=== PATIENT | female | born 1995 | race Caucasian/White ===

== ENCOUNTER 2019-10-23 15:53 | Emergency (ER) | payer OTHER, SELFPAY ==
--- NOTE | ~2019-10-23 | CT_ITS ---
EXAMINATION: CT abdomen pelvis w con DATE: 10/23/2019 17:25 INDICATION: Right flank pain. TECHNIQUE: Computed tomography (CT) of the abdomen and pelvis was performed with 100 mL Omnipaque 350 intravenous contrast. Automated exposure control and iterative reconstruction technique were employe d. The dose-length product was 578.34 mGy-cm. COMPARISON: None. FINDINGS: The visualized portions of the lung bases demonstrate mild atelectasis. No pleural effusion . The heart size is normal. No pericardial effusion. The liver, gallbladder, spleen, pancreas, adrena l glands, and kidneys are normal. There are no dilated loops of bowel. The appendix is normal. There are no pathologically enlarged lymph nodes. There is no free intraperitoneal fluid. There are chronic bilateral L5 pars defects. There is 4 mm anterolisthesis of L5 on S1. There is mild thoracolumbar sp ondylosis. IMPRESSION: 1. No etiology for the patient's symptoms. Reviewed, dictated and finalized at location A.
[2019-10-23 15:55] VITALS: BP 132/69; PULSE 79; RESP 20; TEMP 36.4; O2SAT 99
[2019-10-23 16:21] LABS: Basophils Absolute Auto 0.1 K/mm3 (0.0-0.1); Basophils Percent Auto 1.4 % (0.2-1.2); Eosinophils Absolute Auto 0.3 K/mm3 (0-0.3); Eosinophils Percent Auto 2.8 % (0-4.4); Hematocrit 39.8 % (37.0-47.0); Hemoglobin 13.2 g/dL (12.0-15.0); Immature Granulocyte Absolute 0.02 K/mm3 (0.00-0.031); Immature Granulocyte Percent A 0.2 % (0-0.5); Lymphocytes Absolute Auto 2.78 K/mm3 (0.9-3.2); Lymphocytes Percent Auto 30.1 % (18.3-44.2); Mean Corpuscular HGB Conc 33.2 g/dl (32-36); Mean Corpuscular Hemoglobin 27.3 pg (26-34); Mean Corpuscular Volume 82.2 fl (80-100); Mean Platelet Volume 10.9 fl (7.4-10.4); Monocytes Absolute Auto 0.6 K/mm3 (0.1-0.6); Neutrophils Absolute Auto 5.5 K/mm3 (1.3-6.7); Neutrophils Percent Auto 59.5 % (45.5-73.1); Platelet Count Result 322 k/mm3 (150-375); Red Blood Count 4.84 M/mm3 (4.2-5.4); Red Cell Distribution Width 12.6 % (11.5-14.5); White Blood Count 9.2 K/mm3 (4.5-10.0)
[2019-10-23 16:28] LABS: Add Urine Microscopic? YES; Appearance Urine Clear (Clear); Bacteria Urine Trace /hpf; Bilirubin Urine Negative (Negative); Blood Urine Negative (Negative); Color Urine Yellow (Yellow); Glucose Urine UA Negative (Negative); Ketones Urine Negative (Negative); Leukocyte Esterase Ur Trace LEU/UL (Negative); Mucus Urine Rare /lpf; Nitrate Urine Negative (Negative); Protein Urine Negative (Negative); RBC Urine 0-2 /hpf (0-2); Specific Grav Ur 1.027 (1.001-1.035); Squamous Epithelial Cell Urine Few /hpf (Few)
[2019-10-23 16:38] LABS: Anion Gap 13.1 mmol/L (7-16); Blood Urea Nitrogen 14 mg/dL (7-17); Calcium 9.6 mg/dL (8.4-10.2); Carbon Dioxide 24 mmol/L (22-30); Chloride 106 mmol/L (98-107); Estimated CRCL calculation 98 ml/min; Estimated Glomerular Filt Rate > 60; Glucose 92 mg/dL (65-105); Potassium 4.1 mmol/L (3.4-5.0); Sodium 139 mmol/L (137-145)
--- NOTE | 2019-10-23 16:54 | ED.BACK ---
HPI - Back Pain/Injury General Chief Complaint: Back Pain/Injury Stated Complaint: right lower back pain Time Seen by Provider: 10/23/19 16:20 History of Present Illness HPI Narrative: Patient presents with right flank pain for about a week. Started mild and has been getting worse. It it does not hurt at all when she is at home resting. It hurts mostly when she is moving the carts at work. 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 She had no trauma or injury. She has had no fever,, or sweats. She has had some nausea, but no vomiting. No change in stool. No history of kidney stone, Crohn's, or ulcerative colitis. She does not smoke cigarettes, she does drink some alcohol, she does not do drugs. She has never had a surgery. She has not been sick in the last week or 2. She is on control pills. MD elicited complaint: back pain Onset (ago): day(s) Timing: intermittent Severity: moderate Similar Symptoms Previously: No Radiation: none Exacerbating factors: movement Relieving factors: immobilization Related Data Allergies Allergy/AdvReac Type Severity Reaction Status Date / Time No Known Allergies Allergy Verified 08/06/19 10:11 Review of Systems Review of Systems: Narrative: CONSTITUTIONAL: Denies fever, chills, or sweats. EYES: Denies visual changes, redness, or discharge. ENT: Denies rhinorrhea, congestion, sore throat, or otalgia. CARDIOVASCULAR: Denies chest pain, palpitations, or edema. RESPIRATORY: Denies cough or dyspnea. GASTROINTESTINAL: She has the right flank pain, nausea, but no vomiting, or diarrhea. GENITOURINARY: Denies dysuria or hematuria. SKIN: Denies rash or itching. MUSCULOSKELETAL: Denies back pain, joint pain, or myalgia. NEUROLOGIC: Denies headache, numbness, or weakness. PSYCHIATRIC: Denies anxiety or depression. All systems reviewed & are unremarkable except as noted in HPI and below PMFSH Surgical History Surgical History (Updated 10/23/19 @ 16:58 by Lurdes Yates MD) No pertinent past surgical history Social History Social History (Updated 10/23/19 @ 16:58 by Lurdes Yates MD) Smoking status: Never smoker Second hand tobacco smoke exposure: No Alcohol intake: current Substance use: never Exam Narrative: Exam Narrative: GENERAL: Well-appearing, well-nourished, and in no acute distress. HEAD: Normocephalic, atraumatic. EYES: PERRLA and EOMI. ENT: Nares clear, no rhinorrhea or epistaxis. Mucous membranes moist. NECK: Supple. CHEST: Clear to auscultation. No respiratory distress. HEART: Regular rate and rhythm. No murmur heard. Normal peripheral pulses. ABDOMEN: Soft, nontender, nondistended, normal active bowel sounds. EXTREMITIES: Normal range of motion. No edema. SKIN: Warm, dry, no rash. NEURO: No focal deficits. Alert and oriented x3. PSYCH: Normal mood and affect. Course Reevaluation(s) Reevaluation #1: Went in the room to tell the patient how good her CAT scan turned out. I told her I gave her muscle relaxers for her musculoskeletal pain. Date: 10/23/19 Time: 17:59 Vital Signs Vital signs: Vital Signs Temperature 97.5 F L 10/23/19 15:55 Pulse Rate 79 10/23/19 15:55 Respiratory Rate 20 10/23/19 15:55 Blood Pressure 132/69 10/23/19 15:55 Pulse Oximetry 99 10/23/19 15:55 Temperature 97.5 F L 10/23/19 15:55 Pulse Rate 79 10/23/19 15:55 Respiratory Rate 20 10/23/19 15:55 Blood Pressure 132/69 10/23/19 15:55 Pulse Oximetry 99 10/23/19 15:55 MDM - Back Pain/Injury Medical Records Attestation: I reviewed the patient's medical records. Lab Data Attestation: I reviewed the patient's lab results. Result diagrams: 10/23/19 16:13 10/23/19 16:13 Labs: Lab Results 10/23/19 10/23/19 10/23/19 Range/Units 16:08 16:13 16:13 WBC 9.2 (4.5-10.0) K/mm3 RBC 4.84 (4.2-5.4) M/mm3 Hgb 13.2 (12.0-15.0) g/dL Hct 39.8 (37.0-47.0) % MCV 82.2 (80-100) fl MCH 27.3 (26-34) pg MCHC 33
[2019-10-23 18:21] VITALS: BP 130/64; PULSE 70; RESP 12; O2SAT 99
== END 2019-10-23 18:22 | disposition home or self-care (01) ==
PROVIDERS: Emergency Medicine; Emergency Provider Emergency Medicine; PCP Internal Medicine
DX: R10.9 Unspecified abdominal pain (principal)
CPT/HCPCS: 36415; 74177; 80048; 81001; 81025; 85025; 99284; Q9967

== ENCOUNTER 2022-02-24 17:26 | Emergency (ER) | payer OTHER, SELFPAY ==
--- NOTE | 2022-02-24 17:29 | ED.SKABFB ---
HPI - Skin/Abscess/Foreign Bdy General Chief complaint: Skin/Abscess/Foreign Body Stated complaint: rash Time Seen by Provider: 02/24/22 17:28 Source: patient Mode of arrival: ambulatory Limitations: no limitations History of Present Illness HPI narrative: Vandana is a 26-year-old female patient presenting to the clinic today with complaints of a rash to her inner thighs x 3 weeks. She reports the rash is burning and can be itchy at times. States that it seems to be spreading. She has tried covering them and try different lotions to help resolve the without success Related Data Allergies Allergy/AdvReac Type Severity Reaction Status Date / Time No Known Allergies Allergy Verified 01/28/22 11:23 Review of Systems Review of Systems: Pertinent positives per HPI. Patient denies any fever, chills, headache, visual changes, dizziness, cough, runny nose, sore throat, shortness of breath, chest pain, palpitations, nausea, vomiting, diarrhea, constipation, abdominal pain, or any urinary issues. PMFSH Past Medical History Medical History Anxiety Fracture of right upper limb Surgical History Surgical History No pertinent past surgical history Family History Family History Mother Hypertension Patient's mother is in good health Father Patient's father is in good health Family history of elevated blood lipids Grandparent Family history of primary malignant neoplasm of liver, Onset Age: 69 Social History Social History Smoking status: Never smoker Second hand tobacco smoke exposure: No Alcohol intake: current Alcohol use details: 2-4 drinks once a month Substance use: never Comments At the time of my signature, I reviewed and agree with the nursing past medical, surgical, social, and family history. There is no relevant family history pertinent to the patient complaint. Exam Narrative: General: Well-developed, well nourished, in no apparent distress Head: Normocephalic, atraumatic. Cardio: Regular rate and rhythm, s1 and s2 normal, no murmur appreciated. Resp: Clear to auscultation bilaterally, no rhonchi, rales, wheezing or rubs. Integumentary: [place], warm, and dry, intact without lesion, red mildly raises beefy looking rash to the inner/ posterior thighs bilaterally with satellite lesions Course Course Emergency Course: Portions of this record may have been created with voice recognition software. Level of Care: Express Care Visit Vital Signs Vital signs: Vital Signs Temperature 36.3 C L 02/24/22 17:35 Pulse Rate 77 02/24/22 17:35 Respiratory Rate 18 02/24/22 17:35 Blood Pressure 119/70 02/24/22 17:35 Pulse Oximetry 100 02/24/22 17:35 Oxygen Delivery Room Air 02/24/22 17:35 Temperature 36.3 C L 02/24/22 17:35 Pulse Rate 77 02/24/22 17:35 Respiratory Rate 18 02/24/22 17:35 Blood Pressure 119/70 02/24/22 17:35 Pulse Oximetry 100 02/24/22 17:35 Oxygen Delivery Room Air 02/24/22 17:35 Vital signs reviewed MDM - Skin/Abscess/Foreign Bdy MDM Narrative Medical decision making narrative: At the time of visit patient is resting comfortably on the exam table. I suspect the patient has fungal skin infection. prescription for nystatin cream was ordered and sent to the pharmacy. Supportive measures were discussed with the patient she voiced understanding of discharge instructions and agrees to the treatment plan Differential Diagnosis Differential diagnosis: Likely cellulitis, eczema, contact dermatitis and other ( yeast infection) Discharge Plan Discharge Clinical Impression: Candidal skin infection Patient Disposition: Home, Self-Care Condition: Stable Instructions: Antibiotic Form
[2022-02-24 17:35] VITALS: BP 119/70; PULSE 77; RESP 18; TEMP 36.3; O2SAT 100
== END 2022-02-24 17:57 | disposition home or self-care (01) ==
PROVIDERS: Emergency Provider Nurse Practitioner Family; PCP Internal Medicine
DX: B37.2 Candidiasis of skin and nail (principal)
CPT/HCPCS: 99213; G0463

== ENCOUNTER 2022-09-05 19:02 | Emergency (ER) | payer OTHER, SELFPAY ==
--- NOTE | ~2022-09-05 | XR_ITS ---
XR knee LT min 4V DATE: 09/05/2022 19:26 INDICATION: Fall one the left knee 1 week ago. Pain. TECHNIQUE: 4 views COMPARISON: None FINDINGS: No fracture or dislocation or joint effusion. Joint spaces are well preserved. No radiopaqu e intra-articular loose body or, calcinosis. No periosteal reaction or bone destruction. IMPRESSION: Negative Reviewed, dictated and finalized at location A. IMPRESSION: Negative
--- NOTE | 2022-09-05 19:15 | ED.LOWEXIN ---
HPI - Extremity Injury (Lower) General Chief Complaint: Extremity Injury, Lower Stated Complaint: lt knee injury Time Seen by Provider: 09/05/22 19:15 Source: patient Mode of arrival: ambulatory Limitations: no limitations History of Present Illness HPI Narrative: 27-year-old female presents with complaint of pain to left knee. States 1 week ago she fell while walking on the sidewalk. States that left knee twisted and then she fell on it. Small abrasion noted. Patient works in [employer] and states she stands most today. Since injury left knee pain is getting progressively worse. Ambulatory without limp. All systems reviewed and negative except as noted above. Related Data Home Medications Medication Instructions Recorded Confirmed No Home Medications 09/05/22 09/05/22 Allergies Allergy/AdvReac Type Severity Reaction Status Date / Time No Known Allergies Allergy Verified 03/23/22 15:08 Review of Systems Review of Systems: CONSTITUTIONAL: Denies fever, chills, or sweats. EYES: Denies visual changes, redness, or discharge. ENT: Denies rhinorrhea, congestion, sore throat, or otalgia. CARDIOVASCULAR: Denies chest pain, palpitations, or edema. RESPIRATORY: Denies cough or dyspnea. GASTROINTESTINAL: Denies abdominal pain, nausea, vomiting, or diarrhea. GENITOURINARY: Denies dysuria or hematuria. SKIN: Denies rash or itching. MUSCULOSKELETAL: Reports left knee pain. NEUROLOGIC: Denies headache, numbness, or weakness. PSYCHIATRIC: Denies anxiety or depression. All other systems reviewed are negative, except as documented in HPI. [facility] Past Medical History Medical History Anxiety Fracture of right upper limb Hyperlipidemia Surgical History Surgical History No pertinent past surgical history Family History Family History Mother Hypertension Patient's mother is in good health Father Patient's father is in good health Family history of elevated blood lipids Grandparent Family history of primary malignant neoplasm of liver, Onset Age: 69 Social History Social History Smoking status: Never smoker Second hand tobacco smoke exposure: No Alcohol intake: current Alcohol use details: 2-4 drinks once a month Substance use: never Lack of Transportation: No Lack of Food: Never True Current Housing: I Have Housing Concerned About Future Housing: No Difficulty Paying Gas/Electric Bills: No Difficulty Paying for Meds: No Currently Unemployed: No Education: Associate Degree Difficulty w/ Childcare or Family Care: No Comments At time of signature, agree with nursing past medical, surgical, social and family history. There is no relevant family history pertinent to the presenting complaint. Exam Narrative: GENERAL: This is a well-nourished, well-developed patient, in no apparent distress. HEAD: normocephalic, atraumatic. EYES: PERRL. Sclera clear/white. Vision is grossly intact. EARS: External ears normal NOSE: External nose normal NECK: Neck supple, non-tender without lymphadenopathy, masses or thyromegaly. CARDIOVASCULAR: Regular rate and rhythm without murmurs, gallops, or rubs. RESPIRATORY: Clear to auscultation. Breath sounds equal bilaterally. No wheezes, rales, or rhonchi. SKIN: warm, Dry, intact with no suspicious lesions or rash, good texture and turgor. NEURO: awake, alert, and oriented to person, place and time. There were no obvious focal neurologic abnormalities. EXTREMITIES: Tenderness on palpation to lateral aspect of left knee. Abrasion noted anteriorly. No instability noted, negative anterior posterior drawer testing. No significant swelling noted. Course Course Level of Care: [facility] Care Visit V
[2022-09-05 19:23] VITALS: BP 132/88; PULSE 74; RESP 16; TEMP 36.2; O2SAT 100
== END 2022-09-05 19:50 | disposition home or self-care (01) ==
PROVIDERS: Emergency Provider Nurse Practitioner Family; PCP Internal Medicine
DX: S83.92XA Sprain of unspecified site of left knee, initial encounter (principal); S80.212A Abrasion, left knee, initial encounter; W19.XXXA Unspecified fall, initial encounter; E78.5 Hyperlipidemia, unspecified
CPT/HCPCS: 73564; 99213; G0463

== ENCOUNTER 2023-02-21 13:48 | Emergency (ER) | payer BC, SELFPAY ==
--- NOTE | ~2023-02-21 | XR_ITS ---
EXAMINATION: XR chest 2V DATE: 02/21/2023 14:40 INDICATION: Left chest pain. TECHNIQUE: Frontal and lateral views of the chest were obtained. COMPARISON: CT abdomen and pelvis 10/23/19 FINDINGS: There is no pneumonia, pleural effusion, or pneumothorax. The heart size is normal. IMPRESSION: 1. No acute cardiopulmonary disease. Reviewed, dictated and finalized at location A. ET STRINGER
[2023-02-21 13:49] VITALS: BP 129/87; PULSE 81; RESP 20; TEMP 36.3; O2SAT 98
--- NOTE | 2023-02-21 13:49 | ECG_ITS ---
Measurements Intervals [place] Rate: 66 P: 48 [place]: 134 QRS: 49 QRSD: 81 T: 32 QT: 404 QTc: 425 Interpretive Statements SINUS RHYTHM BASELINE ARTIFACT- I, II, III, AVR, AVL, AVF, V4-V6 NORMAL ECG NO PREVIOUS ECG AVAILABLE FOR COMPARISON Electronically Signed On 02-21-2023 14:15:00 [employer] by Thanh Johnston D.O.
[2023-02-21 14:03] VITALS: BP 124/82; PULSE 71; RESP 18; TEMP 36.9; O2SAT 98
[2023-02-21 14:35] LABS: Basophils Absolute Auto 0.1 K/mm3 (0.0-0.1); Basophils Percent Auto 1.1 % (0.2-1.2); Eosinophils Absolute Auto 0.1 K/mm3 (0-0.3); Hemoglobin 12.9 g/dL (12.0-15.0); Immature Granulocyte Absolute 0.05 K/mm3 (0.00-0.031); Immature Granulocyte Percent A 0.5 % (0-0.5); Lymphocytes Absolute Auto 2.72 K/mm3 (0.9-3.2); Lymphocytes Percent Auto 27.2 % (18.3-44.2); Mean Corpuscular HGB Conc 32.3 g/dl (32-36); Mean Corpuscular Hemoglobin 26.8 pg (26-34); Mean Platelet Volume 10.4 fl (7.4-10.4); Monocytes Absolute Auto 0.6 K/mm3 (0.1-0.6); Monocytes Percent Auto 5.6 % (2.6-8.5); Neutrophils Absolute Auto 6.5 K/mm3 (1.3-6.7); Neutrophils Percent Auto 64.6 % (45.5-73.1); Platelet Count Result 317 k/mm3 (150-375); Red Blood Count 4.82 M/mm3 (4.2-5.4); Red Cell Distribution Width 12.7 % (11.5-14.5)
[2023-02-21 14:43] LABS: Alanine Aminotransferase 17 U/L (6-35); Albumin Level 4.5 g/dL (3.5-5.1); Alkaline Phosphatase 91 U/L (38-126); Anion Gap 10 mmol/L (8-16); Aspartate Amino Transferase 24 U/L (14-36); Bilirubin,Total 0.7 mg/dL (0.2-1.3); Blood Urea Nitrogen 11 mg/dL (7-17); Calcium 9.3 mg/dL (8.4-10.2); Carbon Dioxide 27 mmol/L (22-30); Chloride 100 mmol/L (98-107); Estimated CRCL calculation 111 ml/min; Estimated Glomerular Filt Rate > 60; Glucose 86 mg/dL (65-110); Lipase 33 U/L (23-300); Potassium 3.6 mmol/L (3.4-5.0); Sodium 137 mmol/L (137-145)
[2023-02-21 14:52] LABS: Partial Thromboplastin Time 31.1 SECONDS (22.3-36.8)
[2023-02-21 14:53] LABS: Prothrombin Time 13.4 Seconds (11.1-14.7)
[2023-02-21 14:54] LABS: Troponin I < 0.012 ng/mL (0.000-0.034)
--- NOTE | 2023-02-21 16:46 | ECG_ITS ---
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
--- NOTE | 2023-02-21 16:48 | ED.GENADULT ---
[facility] - General Adult General Chief complaint: Chest Pain Stated complaint: CP x 3 weeks Time Seen by Provider: 02/21/23 16:48 Source: patient Mode of arrival: ambulatory Limitations: no limitations History of Present Illness HPI narrative: This is a 27-year-old female who presents to the ED with chief complaint of chest pain ongoing for the past several weeks intermittently. Reports it returned yesterday and is worse today. Reports pain to the ?top part of the chest. Denies any radiation of pain. Denies syncope or vomiting. Denies shortness of breath, cough or recent illness. Reports sometimes the pain is more on the left and sometimes more on the right. States that since she had been triaged the pain is decreasing. Denies any hormone use, blood clot history or recent travel. Denies any further complaints. Does note that she has had history of GERD in the past but is unsure this is related. She also states that this pain has been precipitated by social alcohol use in the past as well, but she did have a recent night of drinking with friends. Related Data Allergies Allergy/AdvReac Type Severity Reaction Status Date / Time No Known Allergies Allergy Verified 03/23/22 15:08 Review of Systems Review of Systems: All systems as dictated in [facility] Past Medical History Medical History Anxiety Fracture of right upper limb Hyperlipidemia Surgical History Surgical History No pertinent past surgical history Family History Family History Mother Hypertension Patient's mother is in good health Father Patient's father is in good health Family history of elevated blood lipids Grandparent Family history of primary malignant neoplasm of liver, Onset Age: 69 Social History Social History Smoking status: Never smoker Second hand tobacco smoke exposure: No Alcohol intake: current Alcohol use details: 2-4 drinks once a month Substance use: never Lack of Transportation: No Lack of Food: Never True Current Housing: I Have Housing Concerned About Future Housing: No Difficulty Paying Gas/Electric Bills: No Difficulty Paying for Meds: No Currently Unemployed: No Education: Associate Degree Difficulty w/ Childcare or Family Care: No Exam Narrative: GENERAL: Well-appearing, well-nourished, and in no acute distress. HEAD: Normocephalic, atraumatic. EYES: PERRLA and EOMI. ENT: Nares clear, no rhinorrhea or epistaxis. Mucous membranes moist. Oropharynx without tonsillar hypertrophy exudate or other lesions. NECK: Supple. No adenopathy or masses. CHEST: No respiratory distress. Clear to auscultation. No wheezes rales or rhonchi HEART: Regular rate and rhythm. No murmur heard. Normal peripheral pulses. ABDOMEN: Soft, nontender, nondistended, normal active bowel sounds. MSK: Normal range of motion. No edema. SKIN: Warm, dry, no rash. NEURO: Alert and oriented x3. No focal deficits. PSYCH: Normal mood and affect. Course Vital Signs Vital signs: Vital Signs Temperature 97.3 F L 02/21/23 13:49 Pulse Rate 81 02/21/23 13:49 Respiratory Rate 20 02/21/23 13:49 Blood Pressure 129/87 02/21/23 13:49 Pulse Oximetry 98 02/21/23 13:49 Oxygen Delivery Room Air 02/21/23 13:49 Temperature 98.5 F 02/21/23 14:03 Pulse Rate 63 02/21/23 16:49 Respiratory Rate 18 02/21/23 16:49 Blood Pressure 116/80 02/21/23 16:49 Pulse Oximetry 100 02/21/23 16:49 Oxygen Delivery Room Air 02/21/23 13:49 Medical Decision Making [facility] Narrative Medical decision making narrative: This is a 27-year-old female who presents to the ED with chief complaint of multiple weeks of chest pain. Vitals are normal. EKG shows normal sinus rhythm
[2023-02-21 16:49] VITALS: BP 116/80; PULSE 63; RESP 18; O2SAT 100
[2023-02-21 17:37] LABS: Troponin I < 0.012 ng/mL (0.000-0.034)
== END 2023-02-21 18:02 | disposition home or self-care (01) ==
LOC: ANHED 17:47
PROVIDERS: Emergency Medicine; Emergency Provider Physician Assistant; PCP Internal Medicine
DX: R07.89 Other chest pain (principal); E78.5 Hyperlipidemia, unspecified; K21.9 Gastro-esophageal reflux disease without esophagitis
CPT/HCPCS: 36415; 71046; 80053; 83690; 84484; 85025; 85610; 85730; 93005; 99284

== ENCOUNTER 2024-06-22 10:00 | Outpatient (RCR) | payer OTHER, SELFPAY ==
--- NOTE | 2024-04-24 12:06 | PTOPEVAL1 ---
Assessment and note entered by Elda Braden, PT Evaluation Information Assessment Status Evaluation Diagnosis M54.50, M79.604 ICD-10 Condition Codes (PT) Pain in right hip M25.551,Pain in right ankle and joints of right foot M25.571,Weakness R53.1 Onset May 2023 Subjective Information Pt c/o pain which sometimes starts from the R calf, at times it is the whole leg and butt region . described as burning, squeezing, radiating. 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 Sometimes it would be short bursts on and off. Pain comes and goes at time; States took steroids and pain pills but did not resolve the problem. often change position at work. Reported Pain Level Pain Score 0: Self Report Additional Pain Score Comments sits down or laying down to relieve when it is worse. Assessment PT Clinical Summary Pt presents to therapy for evaluation due to leg pain. Demos limitations to lumbar and BLE ROM and strength, postural deficits, decreased core strength and back stability, and pain levels that would disrupt functional mobility when at worst. She would benefit from skilled PT interventions to improve flexibility, lumbar stabilization and core strengthening, modalities prn to manage pain and soft tissue shortening, education including but not limited to HEPs to improve mobility and increase activity tolerance. Plan of Care Interventions Electrical Stimulation,Gait Training,Hot Pack/Cold Pack,Manual Therapy,Mechanical Traction,Neuro Re- education,Patient/Caregiver Education,Therapeutic Activities,Therapeutic Exercise,Ultrasound,Other Other Interventions IASTM, Taping PT Services Indicated Yes Treatment Frequency and 1-2x/wk x 10 visits Duration These treatments will address the objective and functional deficits as defined above. The patient will be advanced safely and appropriately in order for the patient to progress towards his/her prior level of function. Additional exercises will be introduced and as well as a comprehensive home exercise program upon discharge, if needed, ?to ensure carryover of functional gains achieved in the clinic. This treatment plan has been reviewed and agreement upon by the patient.
--- NOTE | 2024-04-24 12:06 | OPREHPOC ---
Outpatient Therapy Plan of Care This is a Multidisciplinary Plan of Care that may contain components documented by all disciplines (PT, OT, and ST.) PT Problem 1 PT Problem #1 Knowledge Deficit PT Goal 1 Goal / Goal Update Pt will demo good understanding of diagnosis and prognosis and POC Pt will perform HEPs to improve core strength and lumbar stability, BLE flexibility and strengthening indep with good accuracy Target Visit 8 PT Problem 2 PT Problem #2 Pain PT Goal 1 Goal / Goal Update Pt will report 2-3/10 pain level at worst or during standing/walking. Pt will report complete resolution of pain to improve functional mobility without discomfort. Target Visit 10 PT Problem 3 PT Problem #3 Impaired Range of Motion PT Goal 1 Goal / Goal Update Pt will demo full active ROM to all tested planes
--- NOTE | 2024-07-23 15:19 | PTOPDC ---
Assessment and note entered by Elda Braden, PT Discharge Information Assessment Status Discharge - Pt Not Present Diagnosis M54.50, M79.604 ICD-10 Condition Codes (PT) Pain in right hip M25.551,Pain in right ankle and joints of right foot M25.571,Weakness R53.1 Onset May 2023 Assessment PT Clinical Summary Pt called office that she went ahead and pursued MRI with Doctor's recommendation for surgery. She cancelled remaining treatment appointments at this time. Plan of Care PT Services Indicated No
== END 2024-07-23 23:59 | disposition home or self-care (01) ==
LOC: ANHHIPT 10:00
PROVIDERS: PCP Nurse Practitioner; Visit Provider Nurse Practitioner
DX: M54.50 Low back pain, unspecified (principal); M79.604 Pain in right leg
CPT/HCPCS: 97012; 97014; 97035; 97110; 97112; 97140; 97161; 97530; G0283

== ENCOUNTER 2024-07-19 06:35 | Outpatient (CLI) | payer OTHER, SELFPAY ==
--- NOTE | ~2024-07-19 | MR_ITS ---
MRI of the lumbar spine Clinical History: Radiculopathy Technique: Axial T2-weighted images, and sagittal T1-weighted, T2-weighted, and and T2 fat-sat images were acquired. Findings: Bilateral L4 pars interarticularis defects are present, with 6 mm anterolisthesis of L4 ove r L5. No acute fracture identified. No bone marrow signal abnormality seen. At L1-L2, L2-L3, L3-L4, there is no disc bulge or herniation. No spinal canal stenosis or neural fora farooq narrowing at these levels. There is moderate facet hypertrophy at L3-L4. There is mild facet ar thropathy at L1-L2 and L2-L3. At L4-L5, there is severe degenerative disc narrowing. Disc bulge/uncovering is present with severe f acet arthropathy, resulting in severe spinal canal stenosis/thecal sac compression, in conjunction wi th the anterolisthesis. There is severe bilateral neural foraminal compromise at this level. At L5-S1, there is no disc bulge or herniation. No spinal canal stenosis or neural foraminal narrowin g. Impression: Bilateral L4 pars interarticularis defects, with 6 mm anterolisthesis of L4 over L5. Severe degenerative spondylitic changes at L4-L5, as detailed above. Reviewed, dictated and finalized at [facility]. Impression: Bilateral L4 pars interarticularis defects, with 6 mm anterolisthesis of L4 ove r L5. Severe degenerative spondylitic changes at L4-L5, as detailed above.
--- OUTSIDE RECORDS SUMMARY | 2024-07-19 06:39 | XMS_ITS | Clinical Summary ---
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 Name Role Phone Unavailable Primary Care Provider Unavailabl e Social History Tobacco Use Types Packs/Day Years Used Date Smoking Tobacco: Never Assessed Comments Unknown Sex and Gender Information Value Date Recorded Sex Assigned at Not on file Legal Sex Female 7:43 PM CDT Gender Identity Not on file Sexual Orientation Not on file Plan of Treatment Health Maintenance Due Date Last Done Comments Cervical Cancer Screening Pa p Smear (Age 30 to 64) Every 3 Years 1993 Annual Physical 1996 Hepatitis C 2011 DTaP, Tdap and Td Vaccines ( 1 - Tdap) 2012 Hepatitis B Vaccines (1 of 3 - 19+ 3-dose series) 2012 Cervical Cancer Screening Pa p with HPV Testing (Age 30 to 64) Every 5 Years 2023 Cervical Cancer Screening with HPV 2023 COVID-19 Vaccine (2023-2 5 season) 2023 HPV Vaccines Aged Out No longer eligi ble based on patient's age to complete this topic Meningococcal B Vaccine Aged Out No l onger eligible based on patient's age to complete this topic Meningococcal Vaccine Aged Out No martina antonino eligible based on patient's age to complete this topic Pneumococcal Vaccine: Pediat rics (0 to 5 Years) and At-Risk Patients (6 to 49 Years) Aged Out No longer eligible b ased on patient's age to complete this topic RSV Immunizations Under 20 Months Aged Out No longer eligible based on patient's age to complete this topic
== END 2024-07-19 06:36 | disposition home or self-care (01) ==
PROVIDERS: PCP Internal Medicine; Visit Provider Internal Medicine
DX: M47.26 Other spondylosis with radiculopathy, lumbar region (principal)
CPT/HCPCS: 72148

== ENCOUNTER 2024-08-03 07:51 | Outpatient (CLI) | payer OTHER, SELFPAY ==
--- NOTE | ~2024-08-03 | CT_ITS ---
CT lumbar spine wo con Ordering provider: Wyatt Orellana MD History: 29 years Female with . M43.16 - Spondylolisthesis, lumbar region . Comparison: None. Technique: CT lumbar spine without contrast. Automated exposure control and iterative reconstruction technique were employed. The dose-length product was 690.75 mGy-cm. FINDINGS: VERTEBRAE: Sacralization of L5 is noted. First-degree spondylolisthesis with bilateral spondylolysis seen at the level of L4-L5.. Otherwise, Normal height and alignment. No subluxation or visible acute fracture. DISC SPACES: Slight narrowing of the disc L4-L5. Otherwise, Well maintained. T12-L1: No stenosis. L1-L2: No stenosis. L2-L3: No stenosis. Mild diffuse disc bulge. L3-L4: No stenosis. Mild diffuse disc bulge. L4-L5: No stenosis. Diffuse disc bulge with bilateral narrowing of the foramina. Highly suggestive n o root compression is seen. L5-S1: No stenosis. PARASPINOUS SOFT TISSUES: Soft tissue density with calcification is seen to the left of the uterus wh ich measures 3.6 x 4 cm. This may represent an enlarged left ovary with a mass or uterine fibroid. Fu rther evaluation advised. IMPRESSION: Sacralization of L5. Spondylolisthesis at the level of L4-L5 with bilateral spondylolysis. Enlarged left ovary with possibility of a calcified mass versus fibroid. Further evaluation advised Reviewed, dictated and finalized at location A. IMPRESSION: Sacralization of L5. Spondylolisthesis at the level of L4-L5 with bilateral spondylolysis. Enlarged left ovary with possibility of a calcified mass versus fibroid. Furthe r evaluation advised
--- NOTE | ~2024-08-03 | XR_ITS ---
EXAMINATION: SCOLIOSIS DATE: 08/05/2024 10:43 CDT INDICATION: Spondylolisthesis TECHNIQUE: Standing AP and lateral views of the thoracolumbar spine FINDINGS: There are 12 rib bearing thoracic vertebral bodies and 5 non-rib bearing lumbar type verteb ral bodies. There is no listhesis, compression deformity or vertebral body anomalies. There is grade 2 spondylolisthesis at L5-S1 secondary to bilateral spondylolysis. There is mild smooth levocurvatur e of the thoracolumbar spine centered at T12 measuring approximately 3 degrees.. There is mild dextr ocurvature of the lumbar spine centered at L2-L3 of 5-6 degrees. IMPRESSION: 1. Mild levocurvature of the thoracolumbar spine. 2. Grade 2 spondylolisthesis at L5-S1 secondary to bilateral spondylolysis. Reviewed, dictated and finalized at location A.
--- NOTE | ~2024-08-03 | XR_ITS ---
Lumbosacral Spine: AP and lateral views Clinical History: Pain Findings: The normal lordotic curve is maintained. There are bilateral L5 pars interarticularis defec ts, with 15 mm anterolisthesis of L5 over S1. The intervertebral disc spaces are preserved. The sacr oiliac joints are normally outlined. Impression: Bilateral L5 pars interarticularis defects, with 15 mm anterolisthesis at this level. Reviewed, dictated and finalized at location M. Impression: Bilateral L5 pars interarticularis defects, with 15 mm anterolisthesis at this level.
--- OUTSIDE RECORDS SUMMARY | 2024-08-03 07:56 | XMS_ITS | Clinical Summary ---
Author Organization [facility] Address [address] [place] [id number] Care Team Providers Care Database Administration Manager Name Role Phone Unavailable Primary Care [...]
== END 2024-08-03 07:52 | disposition home or self-care (01) ==
PROVIDERS: PCP Internal Medicine; Visit Provider Neurological Surgery
DX: M51.86 Other intervertebral disc disorders, lumbar region (principal); M43.16 Spondylolisthesis, lumbar region; M43.8X5 Other specified deforming dorsopathies, thoracolumbar region; M43.17 Spondylolisthesis, lumbosacral region; N83.8 Other noninflammatory disorders of ovary, fallopian tube and broad ligament
CPT/HCPCS: 72082; 72110; 72131

== ENCOUNTER 2024-11-01 08:00 | Outpatient (RCR) | payer OTHER, SELFPAY ==
--- NOTE | 2024-08-06 12:22 | PTOPEVAL1 ---
Assessment and note entered by Elda Braden, PT Evaluation Information Assessment Status Evaluation Diagnosis M43.16, M54.16 ICD-10 Condition Codes (PT) Pain in low back M54.50,Radiculopathy, thoracolumbar region M54.15,Radiculopathy, lumbar region M54.16,Radiculopathy, sacral and sacrococcygeal region M54.18 Onset recurring Subjective Information Pt reports continued pain and discomfort to R lower leg and now, back is starting to bother her more. States she has had back problems on and off in the past. Pain is worse over the course of the day after prolonged standing position. Relieved with sitting/laying down. She did a lot of imaging procedures and consulted with Neurosurgeon, Reported Pain Level Pain Score 3: Self Report Assessment PT Clinical Summary Pt presents to therapy with c/o LBP and R leg pain which impact her ability to perform functional mobility without discomfort. 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 Pt also presents with MRI, X-ray and CT scan results indicating bilateral spondylolysis, Mild levocurvature of the thoracolumbar spine; Modified Oswestry showed mild to moderate disability. She will benefit from skilled PT program for education on postural awareness, proper body mechanics, exercises to improve mobility, flexibility and strength to improve activity tolerance, manage pain and reduce further damage to the spine. Plan of Care Interventions Check Out for Orthotic/Prosthetic,Electrical Stimulation,Gait Training,Hot Pack/Cold Pack, Manual Therapy,Neuro Re-education,Patient/ Caregiver Education,Therapeutic Activities, Therapeutic Exercise,Ultrasound,Other Other Interventions IASTM, Taping PT Services Indicated Yes Treatment Frequency and 2x/wk x 12 visits Duration These treatments will address the objective and functional deficits as defined above. The patient will be advanced safely and appropriately in order for the patient to progress towards his/her prior level of function. Additional exercises will be introduced and as well as a comprehensive home exercise program upon discharge, if needed, ?to ensure carryover of functional gains achieved in the clinic. This treatment plan has been reviewed and agreement upon by the patient.
--- NOTE | 2024-09-19 16:48 | PTOPPROG ---
Assessment and note entered by Kaitlyn Penny, PT Evaluation Information Assessment Status Progress Diagnosis M43.16, M54.16 ICD-10 Condition Codes (PT) Pain in low back M54.50,Radiculopathy, thoracolumbar region M54.15,Radiculopathy, lumbar region M54.16,Radiculopathy, sacral and sacrococcygeal region M54.18 Onset recurring Subjective Information Reports yesterday was able to walk her dog but as soon as got to work all day was flared up. Wasn't a 10 but all day the spasms and throbbing got to me. Reports yesterday was leaning over looking at chicken breasts and felt her back pull. States this morning walking as still flared up and laying down with the legs handing off could feel her back doing something. Has had some days pain has been very minimal and some days very bad. Second visit [facility] neurosurgeon wasn't much information and basically was do you want surgery now or not. Pain management has not done the shot in the back yet. Hayde called to move up but hasn't got it r/s yet . Gabapentin 300 mg 3x daily with pain management. Has been about the same this round of therapy. Hasn't seen much change, is always waiting for when is it going to hit. Assessment PT Clinical Summary Pt has attended therapy consistently for back and leg pain. She has progressed in that she has had instances of little to no pain though does not sustain more than a day. She shows improved strength, her lumbar ROM remains WFL though right lateral flexion continues to reproduce RLE symptoms. Pt cont to have difficulty isolating transverse abdominal musculature and performing/ maintaining pelvic tilt to decompress her spine with functional activities. Pt will benefit from continued therapy to address deficits, reduce pain , and improve function Plan of Care Interventions Check Out for Orthotic/Prosthetic,Electrical Stimulation,Gait Training,Hot Pack/Cold Pack, Manual Therapy,Mechanical Traction,Neuro Re- education,Patient/Caregiver Education,Therapeutic Activities,Therapeutic Exercise,Self-Care/Home Management,Ultrasound,Other Other Interventions IASTM, Taping PT Services Indicated Yes Treatment Frequency and 1-2x weekly x 10 visits Duration These treatments will address the objective and functional deficits as defined above. The patient will be advanced safely and appropriately in order for the patient to progress towards his/her prior level of function. Additional exercises will be introduced and as well as a comprehensive home exercise program upon discharge, if needed, ?to ensure carryover of functional gains achieved in the clinic. This treatment plan has been reviewed and agreement upon by the patient.
--- NOTE | 2024-09-19 16:48 | OPREHPOC ---
Outpatient Therapy Plan of Care This is a Multidisciplinary Plan of Care that may contain components documented by all disciplines (PT, OT, and ST.) PT Goal 1 Goal / Goal Update Pt will be independent in HEP Pt will verbalize understanding of diagnosis and prognosis Target Visit 10 PT Problem 2 PT Problem #2 Pain PT Goal 1 Goal / Goal Update Pt will report lowest pain rating at 0/10 to show improvement in overall discomfort Target Visit 10 Progress Met PT Goal 2 Goal / Goal Update Pt will report greatest pain level at 3/10 or less to improve ADLs and activities Target Visit 20 PT Problem 3 PT Problem #3 Impaired Strength PT Goal 1 Goal / Goal Update Pt will demonstrate 4/5 strength in TRAM in order to improve lumbar stability and control with functional activities. Pt will demonstrate 4/5 strength in gluteus medius and torey to improve lumbar stability and reduce lumbar strain Target Visit 20
== END 2024-11-04 23:59 | disposition home or self-care (01) ==
LOC: ANHHIPT 08:00
PROVIDERS: PCP Internal Medicine; Visit Provider Neurological Surgery
DX: M43.16 Spondylolisthesis, lumbar region (principal); M54.16 Radiculopathy, lumbar region
CPT/HCPCS: 97012; 97014; 97035; 97110; 97112; 97140; 97161; 97530; 97750; G0283

== ENCOUNTER 2024-12-10 08:45 | Outpatient (RCR) | payer OTHER, SELFPAY ==
--- NOTE | 2024-11-14 10:40 | PTOPPROG ---
Assessment and note entered by Kaitlyn Penny, PT Evaluation Information Assessment Status Progress Diagnosis M43.16, M54.16 ICD-10 Condition Codes (PT) Pain in low back M54.50,Radiculopathy, thoracolumbar region M54.15,Radiculopathy, lumbar region M54.16,Radiculopathy, sacral and sacrococcygeal region M54.18 Onset recurring Subjective Information Pt reports noted she hasn't been having as many flare ups. Used to get flare ups daily. Flare ups are less intense as well. Even at work with standing and with the brace alleviates the leg pain. Taking the brace off the leg pain returns, and with brace on leg pain really improves. About a week and a half ago was standing in her apartment most of the day and had no issues, but the next day with relaxing had some increased pain . Some days are still bad but not like before, yesterday it did well. Hasn't taken her Gabapentin in about two months. Also hasn't had to put on her patches in a while either. Pt reports she doesn't want to do surgery and doesn't feel like she is at the phase she needs surgery yet. Improvement: 70% Assessment PT Clinical Summary Pt has attended PT consistently over 18 visits. She reports feeling 70% improved, states less flare ups and less intensity with these flare ups. Most of the time no longer has leg pain, and this ranges 0/10 to 4/10 at worst. Her back ranges from 0-7/10 at times when she is really busy at work though this seems to be related to centralization of radiculopathy. She is being more consistent with her brace use and notes brace relieves her leg pain almost completely and instantly. She now shows full lumbar ROM without pain or radicular symptoms, and shows great improvement in her lumbopelvic core muscles. She continues to show hip ROM and flexibility deficits adding strain to the lumopelvic core, and has yet to progress to functional movement strengthening and lifting which is needed for her work. Pt will benefit from continued therapy in order to continue improving, and provide all the tools to maintain gains and prevent flare ups in the future . Plan of Care Interventions Check Out for Orthotic/Prosthetic,Electrical Stimulation,Gait Training,Hot Pack/Cold Pack, Manual Therapy,Mechanical Traction,Neuro Re- education,Patient/Caregiver Education,Therapeutic Activities,Therapeutic Exercise,Self-Care/Home Management,Ultrasound,Other Other Interventions IASTM, Taping PT Services Indicated Yes Treatment Frequency and 1-2x weekly x 10 visits Duration These treatments will address the objective and functional deficits as defined above. The patient will be advanced safely and appropriately in order for the patient to progress towards his/her prior level of function. Additional exercises will be introduced and as well as a comprehensive home exercise program upon discharge, if needed, ?to ensure carryover of functional gains achieved in the clinic. This treatment plan has been reviewed and agreement upon by the patient.
--- NOTE | 2024-12-25 09:57 | PTOPDC ---
Assessment and note entered by Kaitlyn Penny, PT Evaluation Information Assessment Status Discharge - Pt Not Present Diagnosis M43.16, M54.16 ICD-10 Condition Codes (PT) Pain in low back M54.50,Radiculopathy, thoracolumbar region M54.15,Radiculopathy, lumbar region M54.16,Radiculopathy, sacral and sacrococcygeal region M54.18 Onset recurring Assessment PT Clinical Summary Spoke with patient via phone today as she has not been scheduled for appts in the past two weeks. Pt states she does not want to continue therapy at this time. Overall pt appeared to be making improvements in radicular pain, pain intensity, knowledge of lifestyle modifications to minimize discomfort, and increased strength. She did not meet all of her therapy goals, and did not have complete resolution of pain. Pt is being discharged per request. Plan of Care PT Services Indicated No
== END 2024-12-25 10:06 | disposition home or self-care (01) ==
LOC: ANHHIPT 08:45
PROVIDERS: PCP Internal Medicine; Visit Provider Neurological Surgery
DX: M43.16 Spondylolisthesis, lumbar region (principal); M54.16 Radiculopathy, lumbar region
CPT/HCPCS: 97110; 97112; 97530; 97750